=== PATIENT | male | born 1990 | race African-American/Black ===

== ENCOUNTER 2019-03-18 23:43 | Emergency (ER) | payer SELFPAY ==
[2019-03-19] MEDS ORDERED: Lidocaine 1% w/Epinephrine 1:100K 20 ML VIAL ONE (01:06)
== END 2019-03-19 01:48 | disposition home or self-care (01) ==
LOC: ERS 23:43
DX: L02.31 Cutaneous abscess of buttock (principal)
CPT/HCPCS: 10060

== ENCOUNTER 2019-12-27 00:58 | Emergency (ER) | payer SELFPAY ==
[2019-12-27] MEDS ORDERED: Lidocaine 1% w/Epinephrine 1:100K 20 ML VIAL ONE (02:20)
== END 2019-12-27 03:01 | disposition home or self-care (01) ==
LOC: ERS 00:58
DX: L02.31 Cutaneous abscess of buttock (principal); F17.210 Nicotine dependence, cigarettes, uncomplicated
CPT/HCPCS: 10060

== ENCOUNTER 2021-04-21 10:44 | Emergency (ER) | payer SELFPAY | END 2021-04-21 12:34 | disposition home or self-care (01) | LOC: ERS 10:44 | DX: S61.411A Laceration without foreign body of right hand, initial encounter (principal); L03.113 Cellulitis of right upper limb; F17.210 Nicotine dependence, cigarettes, uncomplicated; W26.0XXA Contact with knife, initial encounter ==

== ENCOUNTER 2022-02-23 16:40 | Emergency (ER) | payer SELFPAY | END 2022-02-23 18:12 | disposition home or self-care (01) | LOC: ERS 16:40 | DX: R11.2 Nausea with vomiting, unspecified (principal); Z20.822 Contact with and (suspected) exposure to COVID-19 | CPT/HCPCS: 99284; U0003; U0005 ==

== ENCOUNTER 2024-11-01 13:04 | Emergency (ER) | payer SELFPAY ==
[2024-11-01] MEDS ORDERED: Ketorolac Tromethamine 30 MG (1 mL) VIAL ONE (13:35)
== END 2024-11-01 13:56 | disposition home or self-care (01) ==
LOC: ERS 13:04
DX: K08.89 Other specified disorders of teeth and supporting structures (principal); K02.9 Dental caries, unspecified
CPT/HCPCS: 96372; 99282; J1885